=== PATIENT | male | born 1990 | race Two or more races ===

== ENCOUNTER 2019-01-15 11:42 | Emergency (ER) | payer SELFPAY ==
[~2019-01-15] VITALS: Ht 162.6 cm; Wt 72.7 kg
[2019-01-15 11:51] VITALS: Ht 162.6 cm; Wt 72.7 kg
[2019-01-15 12:50] LABS: BASOPHILS 0.3 % (0-2); EOSINOPHILS 0.8 % (0-7); HEMATOCRIT 42.3 % (42.0-54.0); HEMOGLOBIN 15.2 g/dL (13.5-17.5); IMMATURE GRANULOCYTES 0.3 % (0-5); LYMPHOCYTES 12.2 % (15-50); MCH 32.8 pg (26.0-34.0); MCHC 35.9 g/dL (31.0-37.0); MCV 91.2 fL (80.0-100.0); MONOCYTES 10.2 % (2-11); NEUTROPHILS 76.2 % (40-80); PLATELET COUNT 268 10x3/uL (130-400); RBC 4.64 10x6/uL (4.20-6.10); RDW 12.5 % (11.5-14.5)
[2019-01-15 13:03] LABS: ALBUMIN 4.6 g/dL (3.4-5.0); ANION GAP 15.1 mmol/L (8-16); BILIRUBIN - TOTAL 1.01 mg/dL (0.2-1.3); CALCIUM 9.6 mg/dL (8.5-10.1); CREATININE - SERUM 1.4 mg/dL (0.6-1.3); POTASSIUM - SERUM 4.1 mmol/L (3.5-5.1); PROTEIN - SERUM 9.2 g/dL (6.4-8.2)
[2019-01-15] MEDS ORDERED: TORADOL10 MG PO (13:08)
[2019-01-15 14:02] VITALS: BP 115/70
== END 2019-01-15 14:06 | disposition home or self-care (01) ==
LOC: D.ER 11:42
PROVIDERS: Family Medicine
DX: R51 Headache (principal); R53.83 Other fatigue; R04.0 Epistaxis